=== PATIENT | male | born 1955 | race Caucasian/White ===

== ENCOUNTER → 2018-01-10 | Outpatient (CLI) | payer BC ==
--- NOTE | 2018-01-10 23:05 | XR ---
EXAMINATION TYPE: XR chest 2V DATE OF EXAM: 01/10/2018 COMPARISON: 10/03/2014 TECHNIQUE: PA and lateral views submitted. HISTORY: Cough FINDINGS: The lungs are clear and there is no pneumothorax, pleural effusion, or focal pneumonia. Arthropathy shoulders. Hypertrophic and degenerative change of the spine. IMPRESSION: 1. No acute process.
== END | disposition home or self-care (01) ==
LOC: RADXRYALE 11:09
PROVIDERS: ATTEND Internal Medicine
DX: J20.9 Acute bronchitis, unspecified (principal)
CPT/HCPCS: 71046

== ENCOUNTER → 2023-09-20 | Outpatient (CLI) | payer MEDICARE ==
--- NOTE | 2023-09-20 10:20 | CA ---
Exercise Stress Test Report Name: Jun Granados Exam Date: 09/20/2023 08:37 Exam Location: [place] Stress Ht (in): 68 Wt (lb): 206 BSA: 2.07 Ordering Phys: Ktahryn Dunn MD Referring Phys: Kathryn Dunn MD Technologist: Oli Pugh Age: 68 Gender: M : 1955 Procedure CPT: Indications: I10 ESSENTIAL HTN ICD-10 Codes: Patient History: Hypertension Medications: Meds past 24 hrs: Pretest Chest Pain: STRESS TEST Chevy Protocol Exercise Duration (min:sec): 06:[address] Depressions (mm): Angina Score: Lira Score: Resting HR (bpm): 103 Peak HR (bpm): 147 Resting BP (mmHg): 178 / 65 Peak BP (mmHg): 203 / 77 MPHR: 154 Target HR: 131 % MPHR: 95 METS: 7.1 Total Dose: Peak Dose: Atropine: Double Product: [id number] BP Response: Stress Termination: Reached target heart rate Stress Symptoms: No chest pain or symptoms Stress Summary: ECG ANALYSIS Resting ECG: Normal sinus rhythm normal axis normal intervals Stress ECG: Patient exercised on Chevy protocol for 6 minutes achieving 85% of predicted maximal heart rate without chest pain or diagnostic ST segment depression CONCLUSIONS Average exercise tolerance Negative stress test by EKG criteria Dr. Cornelio Carrington MD (Electronically Signed) Final Date: 20 September 2023 10:19
== END | disposition home or self-care (01) ==
LOC: RADNMMAIN 08:13
PROVIDERS: ATTEND Internal Medicine
DX: I10 Essential (primary) hypertension (principal); R07.9 Chest pain, unspecified
CPT/HCPCS: 93017

== ENCOUNTER → 2023-10-01 | Outpatient (CLI) | payer MEDICARE ==
--- NOTE | 2023-10-03 12:02 | CA ---
Transthoracic Echo Report Name: Jun Granados Age: 68 Gender: M : 1955 Exam Date: 10/01/2023 15:17 Exam Location: [place] Echo Ht (in): 68 Wt (lb): 206 Ordering Physician: Kathryn Dunn MD Attending/Referring Phys: Kathryn Dunn MD Rn Vascular Jannette Ross, RD Procedure CPT: Indications: I10 ESSENTIAL (PRIMARY) HYPERTENSION Cardiac Hx: Technical Quality: Good Contrast 1: Total Dose (mL): Contrast 2: Total Dose (mL): MEASUREMENTS (Male / Female) Normal Values 2D ECHO LV Diastolic Diameter PLAX 4.3 cm 4.2 - 5.9 / 3.9 - 5.3 cm LV Systolic Diameter PLAX 3.0 cm IVS Diastolic Thickness 1.2 cm 0.6 - 1.0 / 0.6 - 0.9 cm LVPW Diastolic Thickness 1.2 cm 0.6 - 1.0 / 0.6 - 0.9 cm LV Relative Wall Thickness 0.6 RV Internal Dim ED PLAX 3.4 cm LA Systolic Diameter LX 3.9 cm 3.0 - 4.0 / 2.7 - 3.8 cm LV Diastolic Volume MOD BP 63.1 cm??? 67 - 155 / 56 - 104 cm??? LV Systolic Volume MOD BP 21.3 cm??? - 58 / 19 - 49 cm??? LV Ejection Fraction MOD BP 66.3 % >= 55 % LV Cardiac Index MOD BP 1969.2 cm???/min???m??? LV Diastolic Volume MOD 4C 56.5 cm??? LV Systolic Volume MOD 4C 18.9 cm??? LV Ejection Fraction MOD 4C 66.5 % LV Cardiac Index MOD 4C 1767.3 cm???/min???m??? LV Diastolic Length 4C 7.6 cm LV Systolic Length 4C 5.8 cm LV Diastolic Volume MOD 2C 69.0 cm??? LV Systolic Volume MOD 2C 22.1 cm??? LV Ejection Fraction MOD 2C 68.0 % LV Cardiac Index MOD 2C 2211.5 cm???/min???m??? LV Diastolic Length 2C 8.5 cm LV Systolic Length 2C 6.4 cm LA Volume 56.3 cm??? 18 - 58 / 22 - 52 cm??? LA Volume Index 26.2 cm???/m??? 16 - 28 cm???/m??? M-MODE Aortic Root Diameter MM 3.5 cm MV E Point Septal Separation 0.9 cm AV Cusp Separation MM 2.2 cm DOPPLER AV Peak Velocity 136.2 cm/s AV Peak Gradient 7.4 mmHg MV Area PHT 3.0 cm??? Mitral E Point Velocity 72.9 cm/s Mitral A Point Velocity 113.3 cm/s Mitral E to A Ratio 0.6 MV Deceleration Time 249.5 ms FINDINGS Left Ventricle Left ventricular ejection fraction is estimated at 60-65 %. Left ventricular cavity size normal. Mildly increased septal wall thickness. Right Ventricle Normal RV size. Unable to estimate the right ventricular systolic pressure. Right Atrium Normal right atrial size. Left Atrium Normal left atrial size. Mitral Valve Structurally normal mitral valve. Mild mitral annular calcification. Aortic Valve Trileaflet aortic valve. No aortic valve stenosis or regurgitation. Tricuspid Valve Structurally normal tricuspid valve. No tricuspid stenosis, regurgitation or prolapse. Pulmonic Valve Structurally normal pulmonic valve. Trace pulmonic regurgitation. Pericardium No pericardial effusion. Aorta Normal size aortic root and proximal ascending aorta. CONCLUSIONS Left ventricular ejection fraction is estimated at 60-65 %. Left ventricular cavity size normal. Mildly increased septal wall thickness. No significant chamber size abnormality No significant valvular dysfunction Previewed by: Dr Joshua Metcalf (Electronically Signed) Final Date: 03 October 2023 12:01
== END | disposition home or self-care (01) ==
LOC: RADECHMAIN 15:15
PROVIDERS: ATTEND Internal Medicine
DX: I10 Essential (primary) hypertension (principal)
CPT/HCPCS: 93306